=== PATIENT | male | born 2000 | race Caucasian/White ===

== ENCOUNTER 2021-01-09 13:13 | Emergency (ER) | payer BC ==
[~2021-01-09] VITALS: Ht 193 cm; Wt 70.5 kg
[2021-01-09] MEDS ORDERED: PREDNISONE20 MG PO (15:37)
[2021-01-09 18:09] VITALS: BP 139/89; PULSE 89; TEMP 98.7
== END 2021-01-09 18:09 | disposition home or self-care (01) ==
LOC: COL.ER 13:13
DX: T78.1XXA Other adverse food reactions, not elsewhere classified, initial encounter (principal); Z91.010 Allergy to peanuts
CPT/HCPCS: J7512